=== PATIENT | female | born 1940 | race Caucasian/White ===

== ENCOUNTER 2021-04-07 16:22 | Inpatient (IN) | payer MEDICARE, MEDICAID ==
[~2021-04-07] VITALS: Ht 304.8 cm; Wt 57.6 kg
[~2021-04-07 16:22] MED LIST: ALEN70TA79 PO; ATOR40TA70 PO; DEXL30CA3 PO; MEGE40TA5 PO; METF-416 PO; [UNRECOGNIZED DRUG - CODE] PO
[2021-04-07] MEDS ORDERED: ACETAMINOPHEN WITH CODEINE 300/30MG TABLET PO STA (16:57)
[2021-04-07] MEDS ORDERED: ASPIRIN 81MG TABLET PO ONE (17:00)
[2021-04-07 17:33] LABS: BASOPHILS % 0.6 % (0.0-2.0); HEMATOCRIT. 32.4 % (36.0-48.0); HEMOGLOBIN. 10.7 g/dL (12.0-16.0); LYMPHOCYTES % 12.6 % (20.0-50.0); MEAN CORPUSCULAR HEMOGLOBIN 27.1 pg (28.0-32.0); MEAN CORPUSCULAR VOLUME 81.8 fL (81.0-99.0); MEAN PLATELET VOLUME 8.4 fl (7.4-10.4); MONOCYTES % 8.5 % (2.0-8.0); NEUTROPHILS % 77.3 % (40.0-76.0); PLATELET 244 x1000/uL (130-400); RED BLOOD CELL COUNT 3.96 mill/uL (4.2-5.4)
[2021-04-07 17:38] LABS: CHLORIDE 106 mEq/L (98-107)
[2021-04-07] MEDS ORDERED: FUROSEMIDE 20MG TABLET PO ONE (21:45)
[2021-04-08] VITALS (9 sets, daily range): BP systolic 109–148; BP diastolic 54–76
[2021-04-08] MEDS ORDERED: CARV3.1242 MT (09:30)
[2021-04-08] MEDS ORDERED: DEXTROSE 50% WATER 50ML SYRINGE IV PRN (09:45)
[2021-04-08] MEDS ORDERED: FUROSEMIDE 40MG/4ML VIAL IVP NR (09:45)
[2021-04-08] MEDS ORDERED: DILTIAZEM HCL 5MG/ML 5ML VIAL IV NR (09:45)
[2021-04-08] MEDS: ACETAMINOPHEN 325MG TABLET PO PRN (09:51)
[2021-04-08] MEDS: DILTIAZEM HCL 60MG TABLET PO SCH ×4 (09:51→23:44)
[2021-04-08] MEDS: CARVEDILOL 6.25 MG TABLET PO SCH ×2 (09:51→20:45)
[2021-04-08] MEDS ORDERED: ENOXAPARIN 60MG/0.6ML SYR SUBCUT SCH ×2 (10:00)
[2021-04-08] MEDS ORDERED: CALC-1280 MT (11:32)
[2021-04-08] MEDS ORDERED: LOPE2TAB26 MT (11:32)
[2021-04-08] MEDS ORDERED: LORA10TA7 MT (11:32)
[2021-04-08] MEDS ORDERED: AMLO10TA80 MT (11:32)
[2021-04-08] MEDS ORDERED: FURO40TA5 MT (11:32)
[2021-04-08] MEDS ORDERED: ASPI-1497 MT (11:32)
[2021-04-08] MEDS ORDERED: IBUP-2028 MT (11:32)
[2021-04-08] MEDS: BLOOD SUGAR DIAGNOSTIC STRIP TEST SCH ×3 (12:19→20:52)
[2021-04-08] MEDS: INSULIN LISPRO 100 UNITS/ML SUBCUT SCH ×3 (12:27→20:51)
[2021-04-08] MEDS ORDERED: PNEUMOCOCCAL 23-VAL P-SAC VAC 0.5 ML IM ONE (14:00)
[2021-04-08] MEDS: TRAMADOL 50MG TABLET PO PRN (17:22)
[2021-04-08 18:29] LABS: CLARITY URINE CLEAR (CLEAR); COLOR URINE DARK YELLOW (YELLOW); KETONES URINE 1+ (NEGATIVE); LEUKOCYTE ESTERASE URINE 1+ (NEGATIVE); NITRITE URINE NEGATIVE (NEGATIVE); OCCULT BLOOD URINE NEGATIVE (NEGATIVE); PROTEIN URINE TRACE (NEGATIVE); SPECIFIC GRAVITY URINE 1.025 (1.005-1.030)
[2021-04-09] VITALS (11 sets, daily range): BP systolic 109–124; BP diastolic 50–84
[2021-04-09] MEDS: DILTIAZEM HCL 60MG TABLET PO SCH ×3 (05:43→17:09)
[2021-04-09] MEDS: BLOOD SUGAR DIAGNOSTIC STRIP TEST SCH ×3 (05:50→17:11)
[2021-04-09] MEDS: INSULIN LISPRO 100 UNITS/ML SUBCUT SCH ×3 (05:50→17:10)
[2021-04-09 07:29] LABS: BASOPHILS % 0.4 % (0.0-2.0); EOSINOPHILS % 0.5 % (0.0-5.0); HEMATOCRIT. 31.6 % (36.0-48.0); HEMOGLOBIN. 10.4 g/dL (12.0-16.0); LYMPHOCYTES % 12.6 % (20.0-50.0); MEAN CORPUSCULAR HEMOGLOBIN 26.7 pg (28.0-32.0); MEAN CORPUSCULAR VOLUME 81.5 fL (81.0-99.0); MEAN PLATELET VOLUME 8.5 fl (7.4-10.4); NEUTROPHILS % 77.5 % (40.0-76.0); PLATELET 249 x1000/uL (130-400); RED BLOOD CELL COUNT 3.88 mill/uL (4.2-5.4); RED CELL DISTRIBUTION WIDTH 15.7 % (11.6-14.6)
[2021-04-09 07:38] LABS: INR 1.1; PROTHROMBIN TIME 11.4 sec (9.6-11.0)
[2021-04-09 07:39] LABS: CHLORIDE 105 mEq/L (98-107)
[2021-04-09] MEDS: ACETAMINOPHEN 325MG TABLET PO PRN (08:45)
[2021-04-09] MEDS: CARVEDILOL 6.25 MG TABLET PO SCH (08:46)
[2021-04-09] MEDS ORDERED: LEVOFLOXACIN 500MG TABLET PO SCH (11:00)
[2021-04-09] MEDS: TRAMADOL 50MG TABLET PO PRN (13:51)
[2021-04-09] MEDS ORDERED: LEVO250T58 MT (16:55)
[2021-04-09] MEDS ORDERED: RIVAROXABAN 20 MG TABLET PO SCH (17:00)
[2021-04-10] MEDS ORDERED: LEVOFLOXACIN 250MG TABLET PO SCH (11:00)
== END 2021-04-09 18:25 | disposition home or self-care (01) | DRG 308 ==
LOC: ER 16:22 → EDBEDREQTM 21:18 → EDBEDREQ 21:18 → MICUSO 04-08 01:10 → 8WST 04-08 07:22
PROVIDERS: ADMIT Internal Medicine; ATTEND Internal Medicine
DX: I48.91 Unspecified atrial fibrillation (principal); I50.23 Acute on chronic systolic (congestive) heart failure; E87.1 Hypo-osmolality and hyponatremia; E44.1 Mild protein-calorie malnutrition; Z68.1 Body mass index [BMI] 19.9 or less, adult; N39.0 Urinary tract infection, site not specified; I11.0 Hypertensive heart disease with heart failure; E11.9 Type 2 diabetes mellitus without complications; I42.9 Cardiomyopathy, unspecified; J45.909 Unspecified asthma, uncomplicated; D64.9 Anemia, unspecified; E03.9 Hypothyroidism, unspecified; E78.5 Hyperlipidemia, unspecified; Z90.10 Acquired absence of unspecified breast and nipple; Z85.3 Personal history of malignant neoplasm of breast; Z88.0 Allergy status to penicillin; Z86.16 Personal history of COVID-19; Z87.01 Personal history of pneumonia (recurrent); Z95.2 Presence of prosthetic heart valve; Z20.822 Contact with and (suspected) exposure to COVID-19
CPT/HCPCS: 36415; 71045; 80048; 80053; 81003; 82962; 83880; 84484; 85025; 87426; 90732; 93005; 99285; J1650; J1815; J1940; J3490

== ENCOUNTER 2021-04-25 13:44 | Inpatient (IN) | payer MEDICARE, MEDICAID ==
[~2021-04-25] VITALS: Ht 157.5 cm; Wt 59.0 kg
[~2021-04-25 13:44] MED LIST changes: +AMLO10TA80 MT; +ASPI-1497 MT; +CALC-1280 MT; +CARV3.1242 MT; +FURO40TA5 MT; +IBUP-2028 MT; +LEVO250T58 MT; +LOPE2TAB26 MT; +LORA10TA7 MT
[2021-04-25] MEDS ORDERED: ASPIRIN 81MG TABLET PO ONE (14:45)
[2021-04-25 16:21] LABS: HEMATOCRIT. 27.3 % (36.0-48.0); HEMOGLOBIN. 9.2 g/dL (12.0-16.0); MEAN CORPUSCULAR HEMOGLOBIN 26.6 pg (28.0-32.0); MEAN CORPUSCULAR VOLUME 79.1 fL (81.0-99.0); MEAN PLATELET VOLUME 7.8 fl (7.4-10.4); PLATELET 209 x1000/uL (130-400); RED BLOOD CELL COUNT 3.45 mill/uL (4.2-5.4)
[2021-04-25 16:22] LABS: CHLORIDE 105 mEq/L (98-107)
[2021-04-25 16:32] LABS: INR 1.2; PARTIAL THROMBOPLASTIN TIME 29.6 sec (23.4-31.0); PROTHROMBIN TIME 12.5 sec (9.6-11.0)
[2021-04-25] MEDS ORDERED: LEVOFLOXACIN 750MG PREMIX 150 ML IV ONE (16:45)
[2021-04-25] MEDS ORDERED: DEXAMETHASONE 10 MG/ML VIAL IV ONE (16:45)
[2021-04-25 19:59] LABS: CLARITY URINE CLEAR (CLEAR); COLOR URINE YELLOW (YELLOW); KETONES URINE NEGATIVE (NEGATIVE); LEUKOCYTE ESTERASE URINE TRACE (NEGATIVE); NITRITE URINE NEGATIVE (NEGATIVE); OCCULT BLOOD URINE NEGATIVE (NEGATIVE); PH URINE 5.5 (4.5-8.0); PROTEIN URINE NEGATIVE (NEGATIVE); SPECIFIC GRAVITY URINE 1.011 (1.005-1.030); UROBILINOGEN URINE 0.2 E.U./dL (0.2-1.0)
[2021-04-25] MEDS ORDERED: DIPHENHYDRAMINE 50MG/ML VIAL IV PRN (20:00)
[2021-04-25] MEDS ORDERED: CLONIDINE 0.1MG TABLET PO PRN (20:00)
[2021-04-25] MEDS ORDERED: MAGNESIUM/ALUMINUM HYDROXIDE/SIMETHICONE 30ML UDC PO PRN (20:00)
[2021-04-25] MEDS ORDERED: ONDANSETRON HCL 4MG/2ML INJ IV PRN (20:00)
[2021-04-25] MEDS ORDERED: GUAIFENESIN 200MG/10ML SUGAR FREE UDC PO PRN (20:00)
[2021-04-25] MEDS ORDERED: DEXTROSE 50% WATER 50ML SYRINGE IV PRN (20:00)
[2021-04-25] MEDS ORDERED: ALBUTEROL 6.7GM HFA INHALER ORI PRN (20:00)
[2021-04-25] MEDS ORDERED: DOCUSATE SODIUM 100MG CAPSULE PO PRN (20:00)
[2021-04-25] MEDS ORDERED: HYDROCODONE/ACETAMINOPHEN 5/325MG TABLET PO PRN (20:00)
[2021-04-25] MEDS ORDERED: MORPHINE SULFATE 2 MG/ML CPJ (NOT FOR IM USE) IV PRN (20:00)
[2021-04-25] MEDS ORDERED: AZITHROMYCIN 500 MG in DEXT 5% WATER 250 ML IV SCH (21:00)
[2021-04-25] MEDS: BLOOD SUGAR DIAGNOSTIC STRIP TEST SCH (21:49)
[2021-04-25] MEDS: ENOXAPARIN 40MG/0.4ML SYR SUBCUT SCH (22:04)
[2021-04-25] MEDS: INSULIN LISPRO 100 UNITS/ML SUBCUT SCH (22:04)
[2021-04-25] MEDS: SODIUM CHLORIDE 0.9% INJ 3ML FLUSH IVF SCH (22:05)
[2021-04-25 22:13] LABS: PLATELET ESTIMATE NORMAL
[2021-04-25 23:10] VITALS: BP 103/68
[2021-04-25 23:56] VITALS: BP 102/68
[2021-04-26] MEDS: ACETAMINOPHEN 325MG TABLET PO PRN ×2 (02:57→23:59)
[2021-04-26 04:00] VITALS: BP 98/61
[2021-04-26] MEDS: SODIUM CHLORIDE 0.9% INJ 3ML FLUSH IVF SCH ×3 (05:14→23:15)
[2021-04-26] MEDS: BLOOD SUGAR DIAGNOSTIC STRIP TEST SCH ×4 (05:36→21:00)
[2021-04-26] MEDS ORDERED: NALOXONE HCL 0.4MG/ML VIAL IV PRN (06:00)
[2021-04-26] MEDS ORDERED: ALBUTEROL (0.083%) 2.5MG/3ML NEB HHN PRN (06:00)
[2021-04-26] MEDS: INSULIN LISPRO 100 UNITS/ML SUBCUT SCH ×4 (06:42→22:03)
[2021-04-26] MEDS ORDERED: *PATIENT'S OWN MEDICATION STORAGE XX SCH (07:45)
[2021-04-26 08:00] VITALS: BP 117/71
[2021-04-26] MEDS ORDERED: CEFTRIAXONE 1 G PREMIX 50 ML IV SCH (09:00)
[2021-04-26 10:01] LABS: HEMATOCRIT. 29.8 % (36.0-48.0); HEMOGLOBIN. 9.8 g/dL (12.0-16.0); MEAN CORPUSCULAR HEMOGLOBIN 26.5 pg (28.0-32.0); MEAN CORPUSCULAR VOLUME 80.7 fL (81.0-99.0); MEAN PLATELET VOLUME 8.3 fl (7.4-10.4); PLATELET 211 x1000/uL (130-400); RED BLOOD CELL COUNT 3.69 mill/uL (4.2-5.4); RED CELL DISTRIBUTION WIDTH 15.6 % (11.6-14.6)
[2021-04-26 10:17] LABS: CHLORIDE 103 mEq/L (98-107)
[2021-04-26 10:27] LABS: LDL CHOLESTEROL 25 mg/dL (5-100)
[2021-04-26 10:29] LABS: HDL CHOLESTEROL 30 mg/dL (40-59)
[2021-04-26 12:00] VITALS: BP 129/60
[2021-04-26] MEDS: LEVOTHYROXINE SODIUM 100MCG TABLET PO SCH (14:10)
[2021-04-26] MEDS: CARVEDILOL 3.125 MG TABLET PO SCH ×2 (14:10→23:00)
[2021-04-26] MEDS: AMLODIPINE 10MG TABLET PO SCH (14:11)
[2021-04-26 16:00] VITALS: BP 105/62
[2021-04-26 16:47] LABS: CREATINE KINASE 36 IU/L (26-192)
[2021-04-26] MEDS: LORAZEPAM 2MG/ML CPJ IV PRN ×2 (16:59→22:02)
[2021-04-26] MEDS ORDERED: FUROSEMIDE 40MG/4ML VIAL IVP NR (17:00)
[2021-04-26 18:16] LABS: CREATINE KINASE MB FRACTION < 1.0 ng/mL (0.5-3.6)
[2021-04-26 20:00] VITALS: BP 106/58
[2021-04-26] MEDS: ENOXAPARIN 40MG/0.4ML SYR SUBCUT SCH (22:02)
[2021-04-26 22:04] LABS: PLATELET ESTIMATE NORMAL
[2021-04-27] VITALS: BP 105/54
[2021-04-27] MEDS: IPRATROPIUM/ALBUTEROL 0.5-3(2.5)MG/3ML NEB HHN SCH ×2 (02:04→20:16)
[2021-04-27 04:00] VITALS: BP 100/56
[2021-04-27 04:05] LABS: CREATINE KINASE 49 IU/L (26-192)
[2021-04-27 04:06] LABS: CREATINE KINASE MB FRACTION 1.2 ng/mL (0.5-3.6)
[2021-04-27] MEDS: BLOOD SUGAR DIAGNOSTIC STRIP TEST SCH ×4 (06:55→21:00)
[2021-04-27] MEDS: SODIUM CHLORIDE 0.9% INJ 3ML FLUSH IVF SCH ×2 (06:55→22:00)
[2021-04-27] MEDS: LEVOTHYROXINE SODIUM 100MCG TABLET PO SCH (06:55)
[2021-04-27] MEDS: INSULIN LISPRO 100 UNITS/ML SUBCUT SCH ×4 (06:56→20:49)
[2021-04-27 07:21] LABS: CREATINE KINASE 32 IU/L (26-192)
[2021-04-27 07:22] LABS: CREATINE KINASE MB FRACTION < 1.0 ng/mL (0.5-3.6)
[2021-04-27] MEDS: AMLODIPINE 10MG TABLET PO SCH (09:19)
[2021-04-27] MEDS: CARVEDILOL 3.125 MG TABLET PO SCH ×2 (09:19→20:48)
[2021-04-27 12:00] VITALS: BP 102/53
[2021-04-27 16:00] VITALS: BP 97/56
[2021-04-27] MEDS ORDERED: LEVOFLOXACIN 750MG PREMIX 150 ML IV SCH (18:00)
[2021-04-27] MEDS: ENOXAPARIN 40MG/0.4ML SYR SUBCUT SCH (20:49)
[2021-04-27 20:50] VITALS: BP 110/61
[2021-04-28 01:39] VITALS: BP 109/69
[2021-04-28 04:00] VITALS: BP 130/78
[2021-04-28] MEDS: LEVOTHYROXINE SODIUM 100MCG TABLET PO SCH (06:19)
[2021-04-28] MEDS: SODIUM CHLORIDE 0.9% INJ 3ML FLUSH IVF SCH (06:20)
[2021-04-28] MEDS: INSULIN LISPRO 100 UNITS/ML SUBCUT SCH ×2 (07:10→11:38)
[2021-04-28 08:00] VITALS: BP 109/60
[2021-04-28] MEDS: IPRATROPIUM/ALBUTEROL 0.5-3(2.5)MG/3ML NEB HHN SCH (08:00)
[2021-04-28] MEDS: CARVEDILOL 3.125 MG TABLET PO SCH (08:54)
[2021-04-28] MEDS: AMLODIPINE 10MG TABLET PO SCH (08:55)
[2021-04-28 09:35] LABS: BASOPHILS % 0.4 % (0.0-2.0); EOSINOPHILS % 1.7 % (0.0-5.0); HEMATOCRIT. 29.2 % (36.0-48.0); HEMOGLOBIN. 9.8 g/dL (12.0-16.0); LYMPHOCYTES % 17.7 % (20.0-50.0); MEAN CORPUSCULAR HEMOGLOBIN 26.7 pg (28.0-32.0); MEAN CORPUSCULAR VOLUME 79.7 fL (81.0-99.0); MEAN PLATELET VOLUME 8.1 fl (7.4-10.4); MONOCYTES % 8.7 % (2.0-8.0); NEUTROPHILS % 71.5 % (40.0-76.0); PLATELET 224 x1000/uL (130-400); RED BLOOD CELL COUNT 3.66 mill/uL (4.2-5.4); RED CELL DISTRIBUTION WIDTH 15.7 % (11.6-14.6)
[2021-04-28 09:48] LABS: CHLORIDE 113 mEq/L (98-107)
[2021-04-28] MEDS: BLOOD SUGAR DIAGNOSTIC STRIP TEST SCH (11:37)
[2021-04-28 12:00] VITALS: BP 116/62
== END 2021-04-28 13:25 | disposition home or self-care (01) | DRG 871 ==
LOC: ER 13:55 → 7WST 18:15 → EDBEDREQ 18:46 → ENRESERV 19:54 → 7EST 04-26 05:47
PROVIDERS: ADMIT Internal Medicine; ATTEND Internal Medicine
DX: A41.9 Sepsis, unspecified organism (principal); J18.9 Pneumonia, unspecified organism; J96.00 Acute respiratory failure, unspecified whether with hypoxia or hypercapnia; I48.20 Chronic atrial fibrillation, unspecified; J44.0 Chronic obstructive pulmonary disease with (acute) lower respiratory infection; I42.9 Cardiomyopathy, unspecified; E87.2 Acidosis; I50.32 Chronic diastolic (congestive) heart failure; F17.200 Nicotine dependence, unspecified, uncomplicated; E11.9 Type 2 diabetes mellitus without complications; Z20.822 Contact with and (suspected) exposure to COVID-19; E78.5 Hyperlipidemia, unspecified; I35.0 Nonrheumatic aortic (valve) stenosis; E89.0 Postprocedural hypothyroidism; I11.0 Hypertensive heart disease with heart failure; Z85.3 Personal history of malignant neoplasm of breast; Z90.10 Acquired absence of unspecified breast and nipple; Z88.0 Allergy status to penicillin; Z79.899 Other long term (current) drug therapy; Z79.2 Long term (current) use of antibiotics; Z79.1 Long term (current) use of non-steroidal anti-inflammatories (NSAID); Z79.890 Hormone replacement therapy; Z86.16 Personal history of COVID-19; Z87.01 Personal history of pneumonia (recurrent); Z95.2 Presence of prosthetic heart valve; Z79.84 Long term (current) use of oral hypoglycemic drugs
CPT/HCPCS: 36415; 71045; 80048; 80053; 80061; 81003; 82550; 82553; 82962; 83036; 83605; 83880; 84439; 84443; 84484; 85025; 85379; 93005; 93306; 94640; 99285; J0456; J1100; J1200; J1650; J1815; J1940; J1956; J2060; J7040; J7060; U0003; U0005